=== PATIENT | female | born 1985 | race Caucasian/White ===

== ENCOUNTER 2017-10-24 21:17 | Emergency (ER) | payer OTHER ==
[~2017-10-24] VITALS: Ht 157.5 cm; Wt 113.4 kg
[~2017-10-24 21:17] MED LIST: ALBU90OI61 INH; AMOX500 PO; Abilify2 MG PO; BUDE200IP INH; CLON.5 PO; CYCL10 PO; DOCU100 PO; HYDACE5 PO; HYDPAM25 PO; HYDR1TAB94 PO; IBUP600 PO; LAMO100 PO; NAPR500 PO; OXYACE5T PO; Omeprazole20 M1 PO; PENVK500 PO; PRAZ2 PO; RXHYD5325 PO; RXHYDACE PO; SUMA25 PO; TRAM50 PO; VENL37.5ER PO; VICODIN 5-3001 EACH PO; Verotin-Gr Cap1 EACH PO; Zofran4 MG PO
[2017-10-24] MEDS ORDERED: IBUP800 (23:52)
[2017-10-24] MEDS ORDERED: SERT100 PO (23:54)
[2017-10-24] MEDS ORDERED: TECFIDERA240 MG PO (23:54)
[2017-10-24] MEDS ORDERED: PANT20 PO (23:55)
[2017-10-25] MEDS ORDERED: Prednisone20 MG PO (02:33)
== END 2017-10-25 02:59 | disposition home or self-care (01) ==
LOC: ER 21:17
DX: J20.9 Acute bronchitis, unspecified (principal); F17.210 Nicotine dependence, cigarettes, uncomplicated; Z88.5 Allergy status to narcotic agent; Z79.899 Other long term (current) drug therapy; Z79.52 Long term (current) use of systemic steroids
CPT/HCPCS: 71046; 94640; 99283

== ENCOUNTER → 2018-02-02 | Outpatient (CLI) | payer OTHER ==
[~2018-02-02] MED LIST changes: +IBUP800; +PANT20 PO; +Prednisone20 MG PO; +SERT100 PO; +TECFIDERA240 MG PO
[2018-02-09 12:08] LABS: CHLAMYDIA BY NAA Negative (Negative); GONOCOCCUS BY NAA Negative (Negative); HPV 16 Negative (Negative); HPV 18 Negative (Negative); HPV OTHER HR TYPES Negative (Negative); TRICH VAG BY NAA Negative (Negative)
== END | disposition home or self-care (01) ==
LOC: LAB SHORT 15:33 → LAB 15:33
PROVIDERS: Obstetrics & Gynecology
DX: Z01.419 Encounter for gynecological examination (general) (routine) without abnormal findings (principal); Z11.3 Encounter for screening for infections with a predominantly sexual mode of transmission
CPT/HCPCS: 87491; 87591; 87624; 87661; G0123

== ENCOUNTER 2018-02-28 10:01 | Day surgery (SDC) | payer OTHER | END 2018-02-28 22:47 | disposition home or self-care (01) | LOC: RAD 10:01 | DX: N92.6 Irregular menstruation, unspecified (principal) | CPT/HCPCS: 58340; 74740; Q9967 ==